=== PATIENT | male | born 1955 | race Caucasian/White ===

== ENCOUNTER 2017-08-18 12:52 | Emergency (ER) | payer BC ==
[~2017-08-18] VITALS: Ht 170.2 cm; Wt 99.1 kg
[2017-08-18] MEDS ORDERED: CLON0.5T PO (12:58)
[2017-08-18] MEDS ORDERED: VENL75TA2 PO (12:58)
[2017-08-18] MEDS ORDERED: AMLO25TA PO (12:58)
[2017-08-18] MEDS ORDERED: SIMV40TA2 PO (12:58)
[2017-08-18] MEDS ORDERED: ATEN50TA2 PO (12:58)
[2017-08-18] MEDS ORDERED: LISI40TAB PO (12:58)
[2017-08-18] MEDS ORDERED: MORPHINE 4 MG/ML 1ML SYRINGE IV ONE ×2 (13:30→15:00)
[2017-08-18] MEDS ORDERED: PERCOCET 5MG/325MG TAB PO ONE (17:30)
--- NOTE | 2017-08-18 17:40 | REPUSA ---
CT of the right foot without contrast Clinical statement: Pain. Technique: Multiple axial CT images were obtained with 5 mm cuts through the right foot without admin istration of contrast. 3D, coronal and sagittal reconstructions were also obtained. No comparison is available. Findings: There is an acute comminuted fracture at the base of the second metatarsal. A fracture frag ment is displaced into the articulation of the middle cuneiform and the third metatarasal. There is a n acute nondisplaced fracture of the inferior distal medial cuneiform bone, extending to the tarsal/m etatarasal articular surface. A benign, chronic well corticated calcification is seen medial to the t arsal bones. Anterior and posterior calcaneal bone Spurs are noted. The superficial soft tissues are diffusely swollen along the dorsal aspect. Impression: 1. Acute, comminuted fracture at the base of the second metatarsal extending to the proximal articula r surface. At least one osseous fragment appears to be disc placed into the articulation of the middl e cuneiform bone and the third metatarsal. 2. Acute, nondisplaced fracture of the inferior distal aspect of the medial cuneiform bone, extending to the articular surface. 3. Findings are consistent with Lis Franc fracture. 4. Diffuse soft tissue edema and swelling along the dorsum of the foot. 5. Small anterior and posterior calcaneal bone spurs.
[2017-08-18] MEDS ORDERED: PERC5TAB12 PO (18:45)
[2017-08-18] MEDS ORDERED: OXYCODONE/APAP 5MG/325MG(BULK FOR ED) 1 TABLET PO ONE (19:00)
[2017-08-18 19:11] VITALS: BP 124/74
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
== END 2017-08-18 19:12 | disposition home or self-care (01) ==
LOC: M ED 12:52 → EDBD 12:52 → M ED 19:12
DX: S92.321A Displaced fracture of second metatarsal bone, right foot, initial encounter for closed fracture (principal); S92.241A Displaced fracture of medial cuneiform of right foot, initial encounter for closed fracture; W17.89XA Other fall from one level to another, initial encounter; Y92.833 Campsite as the place of occurrence of the external cause; Y93.89 Activity, other specified; Y99.8 Other external cause status; I10 Essential (primary) hypertension; F41.9 Anxiety disorder, unspecified; E78.9 Disorder of lipoprotein metabolism, unspecified; Z79.899 Other long term (current) drug therapy